=== PATIENT | male | born 1955 | race African-American/Black ===

== ENCOUNTER 2019-01-19 12:58 | Inpatient (IN) ==
[2019-01-19] MEDS ORDERED: NITROGLYCERIN 2% OINT 1 INCH/GM PACK TOP STA (13:56)
[2019-01-19] MEDS ORDERED: ALBUTEROL/IPRATROPIUM 3 ML NEB RESP TX STA (13:56)
[2019-01-19] MEDS ORDERED: ONDANSETRON 4 MG/2 ML VIAL IV STA (13:56)
[2019-01-19] MEDS ORDERED: ASPIRIN 325 MG TABLET PO STA (13:56)
[2019-01-19] MEDS ORDERED: FUROSEMIDE 100 MG/10 ML VIAL IV STA (13:56)
[2019-01-19] MEDS ORDERED: MORPHINE 4 MG/1 ML VIAL IV STA (13:56)
[2019-01-19 15:18] LABS: Basophils % 0.2 % (0.0-0.8); Eosinophils # 1.3 10*3/uL (0.0-0.87); Eosinophils % 10.7 % (0.00-10.9); Hematocrit 35.4 VOL% (42.0-52.0); Hemoglobin 10.5 GM/DL (14.0-18.0); Immature Granulocytes % 0.4 %; Immature Granulocytes Absolute 0.05 #; Lymphocytes # 2.5 10*3/uL (1.4-4.0); Lymphocytes % 20.3 % (21.2-54.2); Mean Corpuscular HGB Conc 29.7 GM/DL (32-36); Mean Corpuscular Hemoglobin 28 PG (27-34); Mean Corpuscular Volume 93.7 FL (87-102); Mean Platelet Volume 9.4 FL (9.6-12.0); Monocytes # 0.7 10*3/uL (0.11-0.8); Monocytes % 5.6 % (1.7-12.7); Neutrophils # 7.6 10*3/uL (1.4-7.4); Neutrophils % 62.8 % (38.7-73.9); Platelet Count 380 T/CUMM (130-400); Red Blood Count 3.78 MC/CUMM (3.8-5.5); Red Cell Distribution Width 13.1 % (9.3-17.3); White Blood Count 12.1 T/CUMM (4-12)
[2019-01-19 15:31] LABS: Apearance,Urine CLEAR (Clear); Bacteria,Urine Occasional /HPF (Few); Bilirubin,Urine Negative (Negative); Blood, Urine Small mg/dL (Negative); Glucose,Urine (UA) Negative (Negative); Ketones,Urine Negative (Negative); Mucus,Urine Occasional /LPF (Occasional); Nitrite,Urine Negative (Negative); PT Patient Result 10.4 SECS; Protein,Urine 30 MG/DL; RBC,Urine 1 /HPF (0-4); Urine Color Colorless (Yellow); Urine Specific Gravity 1.008 (1.001-1.035); Urine Urobilinogen < 2.0 EU/DL (0.2-1.0); WBC,Urine <1 /HPF (0-6)
[2019-01-19 15:43] LABS: Albumin 3.6 G/DL (3.4-5.0); Bilirubin,Total 0.5 MG/DL (0.2-1.0); Calcium 9.1 MG/DL (8.5-10.1); Potassium 4.1 MMOL/L (3.5-5.1); Total Protein 9.3 G/DL (6.4-8.3)
[2019-01-19] MEDS ORDERED: MAGNESIUM SULF RIDER 4 GM in PREMIX 1 EACH IV PRN (16:35)
[2019-01-19] MEDS ORDERED: MAGNESIUM SULF RIDER 2 GM in PREMIX 1 EACH IV PRN (16:35)
[2019-01-19] MEDS ORDERED: GLUCAGON 1 MG VIAL IM PRN ×2 (16:38)
[2019-01-19] MEDS ORDERED: DEXTROSE 50% 25 GM/50 ML VIAL IV PRN ×2 (16:38)
[2019-01-19] MEDS ORDERED: CETIRIZINE 10 MG TABLET PO PRN (16:43)
[2019-01-19] MEDS ORDERED: MORPHINE 4 MG/1 ML VIAL IV PRN (16:47)
[2019-01-19] MEDS ORDERED: ZALEPLON 5 MG CAPSULE PO PRN (16:47)
[2019-01-19] MEDS ORDERED: ONDANSETRON 4 MG/2 ML VIAL IV PRN (16:47)
[2019-01-19] MEDS ORDERED: diphenhydrAMINE CAP 25 MG CAPSULE PO PRN (16:47)
[2019-01-19] MEDS ORDERED: ACETAMINOPHEN 325 MG TABLET PO PRN (16:47)
[2019-01-19 16:48] LABS: Eosinophils 9 % (0-10); Lymphocytes 20 % (20-55); Platelet Estimate Normal; Segmented Neutrophils 66 % (50-85); Total Cells Counted 100
[2019-01-19] MEDS ORDERED: HEPARIN 5,000 UNIT/1 ML VIAL SUBCUT SCH (17:00)
[2019-01-19] MEDS ORDERED: hydrALAZINE 20 MG/1 ML VIAL IV PRN (17:03)
[2019-01-19 17:21] LABS: Risk Ratio 3.62; VLDL CHOLESTEROL 23.4 MG/DL
[2019-01-19] MEDS ORDERED: hydrALAZINE 20 MG/1 ML VIAL IV STA (17:45)
[2019-01-19] MEDS ORDERED: cefTRIAXone 1,000 MG in SODIUM CHLORIDE 0.9% 100 ML IV SCH (18:00)
[2019-01-19] MEDS: ALBUTEROL/IPRATROPIUM 3 ML NEB RESP TX SCH (19:37)
[2019-01-19] MEDS ORDERED: hydrALAZINE 10 MG TABLET PO SCH (21:00)
[2019-01-19] MEDS ORDERED: APIXABAN 2.5 MG TABLET PO SCH (21:00)
[2019-01-19] MEDS: FUROSEMIDE 40 MG/4 ML VIAL IV SCH (21:23)
[2019-01-19] MEDS: hydrALAZINE 10 MG TABLET PO SCH (21:24)
[2019-01-19] MEDS: TAMSULOSIN 0.4 MG CAPSULE PO SCH (21:24)
[2019-01-19] MEDS: DOCUSATE SODIUM 100 MG CAPSULE PO SCH (21:24)
[2019-01-19] MEDS: ATORVASTATIN 40 MG TABLET PO SCH (21:24)
[2019-01-19] MEDS: CARVEDILOL 3.125 MG TABLET PO SCH (21:24)
[2019-01-19] MEDS: APIXABAN 2.5 MG TABLET PO SCH (21:25)
[2019-01-19] MEDS: INSULIN REGULAR 100 UNIT/ML SUBCUT SCH (21:25)
[2019-01-20] MEDS: ALBUTEROL/IPRATROPIUM 3 ML NEB RESP TX SCH ×4 (00:31→19:56)
[2019-01-20] MEDS: FUROSEMIDE 40 MG/4 ML VIAL IV SCH ×4 (03:35→20:48)
[2019-01-20 05:21] LABS: Basophils % 0.2 % (0.0-0.8); Eosinophils # 0.9 10*3/uL (0.0-0.87); Eosinophils % 8.1 % (0.00-10.9); Hematocrit 29.6 VOL% (42.0-52.0); Hemoglobin 8.7 GM/DL (14.0-18.0); Immature Granulocytes % 0.4 %; Immature Granulocytes Absolute 0.04 #; Lymphocytes # 1.9 10*3/uL (1.4-4.0); Lymphocytes % 18.2 % (21.2-54.2); Mean Corpuscular HGB Conc 29.4 GM/DL (32-36); Mean Corpuscular Hemoglobin 28 PG (27-34); Mean Platelet Volume 9.5 FL (9.6-12.0); Monocytes # 0.8 10*3/uL (0.11-0.8); Monocytes % 7.9 % (1.7-12.7); Neutrophils # 6.9 10*3/uL (1.4-7.4); Neutrophils % 65.2 % (38.7-73.9); Platelet Count 314 T/CUMM (130-400); Red Blood Count 3.15 MC/CUMM (3.8-5.5); Red Cell Distribution Width 13.3 % (9.3-17.3); White Blood Count 10.6 T/CUMM (4-12)
[2019-01-20 05:41] LABS: Calcium 8.3 MG/DL (8.5-10.1); Potassium 4.4 MMOL/L (3.5-5.1)
[2019-01-20 07:53] LABS: Total Protein (Chem) 9.5 G/DL (6.4-8.3)
[2019-01-20] MEDS ORDERED: FUROSEMIDE 40 MG/4 ML VIAL IV SCH ×2 (08:00)
[2019-01-20] MEDS: INSULIN REGULAR 100 UNIT/ML SUBCUT SCH ×4 (08:31→20:56)
[2019-01-20] MEDS ORDERED: LISINOPRIL 2.5 MG TABLET PO SCH (09:00)
[2019-01-20] MEDS: DOCUSATE SODIUM 100 MG CAPSULE PO SCH ×2 (10:15→20:51)
[2019-01-20] MEDS: ASPIRIN CHEW 81 MG TABLET PO SCH (10:15)
[2019-01-20] MEDS: CARVEDILOL 3.125 MG TABLET PO SCH ×2 (10:15→20:51)
[2019-01-20] MEDS: hydrALAZINE 10 MG TABLET PO SCH ×3 (10:15→20:48)
[2019-01-20] MEDS: APIXABAN 2.5 MG TABLET PO SCH ×2 (10:16→20:49)
[2019-01-20] MEDS: PANTOPRAZOLE 40 MG TABLET PO SCH (10:16)
[2019-01-20 11:13] LABS: Albumin (SPE) 4.6 G/DL (3.2-5.3)
[2019-01-20 11:14] LABS: Albumin (SPE) Rel % 48.7 %; Alpha 1 (SPE) 0.3 G/DL (0.1-0.4); Alpha 2 (SPE) 1.2 G/DL (0.4-1.0); Alpha 2 (SPE) Rel % 12.2 %; Beta (SPE) Rel % 10.7 %; Gamma (SPE) 2.4 G/DL (0.7-1.7); Gamma (SPE) Rel % 25.4 %
[2019-01-20] MEDS: ISOSORBIDE MONONITRATE 60 MG TABLET PO SCH (12:33)
[2019-01-20] MEDS ORDERED: MAGNESIUM SULF RIDER 2 GM in PREMIX 1 EACH IV ONE (17:54)
[2019-01-20] MEDS ORDERED: ALPRAZolam 0.5 MG TABLET PO ONE (17:55)
[2019-01-20 17:58] LABS: ABG Base Excess -1.8 MMOL/L (-2.5-2.5); ABG HCO3 22.9 MMOL/L (20-26); ABG Oxygen Saturation 97.9 % (95-100); ABG PCO2 39.2 MM HG (35-48); ABG PH 7.379 (7.35-7.45); ABG PO2 99.8 MM HG (80-95); ABG TCO2 21.2 MMOL/L (23-27)
[2019-01-20 18:06] LABS: Basophils % 0.2 % (0.0-0.8); Eosinophils # 0.6 10*3/uL (0.0-0.87); Eosinophils % 4.7 % (0.00-10.9); Hematocrit 30.8 VOL% (42.0-52.0); Hemoglobin 9.1 GM/DL (14.0-18.0); Immature Granulocytes % 0.5 %; Immature Granulocytes Absolute 0.06 #; Lymphocytes # 1.5 10*3/uL (1.4-4.0); Lymphocytes % 11.8 % (21.2-54.2); Mean Corpuscular HGB Conc 29.5 GM/DL (32-36); Mean Corpuscular Hemoglobin 28 PG (27-34); Mean Corpuscular Volume 93.6 FL (87-102); Mean Platelet Volume 9.3 FL (9.6-12.0); Monocytes # 0.8 10*3/uL (0.11-0.8); Monocytes % 6.3 % (1.7-12.7); Neutrophils # 9.6 10*3/uL (1.4-7.4); Neutrophils % 76.5 % (38.7-73.9); Platelet Count 328 T/CUMM (130-400); Red Blood Count 3.29 MC/CUMM (3.8-5.5); Red Cell Distribution Width 13.2 % (9.3-17.3); White Blood Count 12.5 T/CUMM (4-12)
[2019-01-20 18:32] LABS: Bilirubin,Total 0.4 MG/DL (0.2-1.0); Calcium 8.3 MG/DL (8.5-10.1); Osmolality,Calculated 296.1 MOS/KG (273-304); Troponin I 0.019 NG/ML (0.00-0.045)
[2019-01-20 18:52] LABS: Calcium 8.2 MG/DL (8.5-10.1); Osmolality,Calculated 296.1 MOS/KG (273-304)
[2019-01-20] MEDS: ATORVASTATIN 40 MG TABLET PO SCH (20:51)
[2019-01-20] MEDS: TAMSULOSIN 0.4 MG CAPSULE PO SCH (20:51)
[2019-01-21] MEDS: ALBUTEROL/IPRATROPIUM 3 ML NEB RESP TX SCH ×4 (00:31→19:41)
[2019-01-21] MEDS: FUROSEMIDE 40 MG/4 ML VIAL IV SCH ×3 (04:41→16:37)
[2019-01-21 05:03] LABS: Basophils % 0.3 % (0.0-0.8); Eosinophils # 0.7 10*3/uL (0.0-0.87); Hematocrit 28.9 VOL% (42.0-52.0); Hemoglobin 8.7 GM/DL (14.0-18.0); Immature Granulocytes % 0.4 %; Immature Granulocytes Absolute 0.04 #; Lymphocytes # 2.4 10*3/uL (1.4-4.0); Lymphocytes % 20.9 % (21.2-54.2); Mean Corpuscular HGB Conc 30.1 GM/DL (32-36); Mean Corpuscular Hemoglobin 28 PG (27-34); Mean Corpuscular Volume 92.9 FL (87-102); Mean Platelet Volume 9.7 FL (9.6-12.0); Neutrophils # 7.2 10*3/uL (1.4-7.4); Neutrophils % 63.4 % (38.7-73.9); Platelet Count 328 T/CUMM (130-400); Red Blood Count 3.11 MC/CUMM (3.8-5.5); Red Cell Distribution Width 13.2 % (9.3-17.3); White Blood Count 11.4 T/CUMM (4-12)
[2019-01-21 05:19] LABS: Calcium 8.6 MG/DL (8.5-10.1); Potassium 3.7 MMOL/L (3.5-5.1)
[2019-01-21 05:23] LABS: % Iron Saturation 9.7 % (18-50); Ferritin 45.3 ng/ml (26-388)
[2019-01-21 05:50] LABS: Folate 9.9 NG/ML (5.4-24.0)
[2019-01-21 06:16] LABS: Creatinine,Urine Random 54 MG/DL; Total Protein,Urine Random 111 MG/DL; Urea Nitrogen, Urine Random 227 MG/DL
[2019-01-21 09:10] LABS: Immunoglobulin A 363 MG/DL (70-400); Immunoglobulin G 1950 MG/DL (700-1600); Immunoglobulin M 86 MG/DL (40-230)
[2019-01-21] MEDS: INSULIN REGULAR 100 UNIT/ML SUBCUT SCH ×4 (09:42→21:42)
[2019-01-21] MEDS: hydrALAZINE 10 MG TABLET PO SCH ×3 (09:42→21:38)
[2019-01-21] MEDS: ISOSORBIDE MONONITRATE 60 MG TABLET PO SCH (09:42)
[2019-01-21] MEDS: DOCUSATE SODIUM 100 MG CAPSULE PO SCH ×2 (09:42→21:39)
[2019-01-21] MEDS: ASPIRIN CHEW 81 MG TABLET PO SCH (09:42)
[2019-01-21] MEDS: PANTOPRAZOLE 40 MG TABLET PO SCH (09:42)
[2019-01-21] MEDS: CARVEDILOL 3.125 MG TABLET PO SCH (09:42)
[2019-01-21] MEDS: APIXABAN 2.5 MG TABLET PO SCH (09:42)
[2019-01-21 09:57] LABS: Albumin (UPER) 66.9 MG/DL; Albumin (UPER) Rel% 60.3 %; Alpha 1 (UPER) 10.1 MG/DL; Alpha 1 (UPER) Rel% 9.1 %; Alpha 2 (UPER) 4.2 MG/DL
[2019-01-21 09:58] LABS: Alpha 2 (UPER) Rel % 3.8 %; Beta (UPER) 9.8 MG/DL; Beta (UPER) Rel % 8.8 %
[2019-01-21] MEDS: TAMSULOSIN 0.4 MG CAPSULE PO SCH (21:39)
[2019-01-21] MEDS: ATORVASTATIN 40 MG TABLET PO SCH (21:39)
[2019-01-21] MEDS: CARVEDILOL 6.25 MG TABLET PO SCH (21:39)
[2019-01-22] MEDS: ALBUTEROL/IPRATROPIUM 3 ML NEB RESP TX SCH ×4 (01:00→19:31)
[2019-01-22 05:27] LABS: Basophils % 0.3 % (0.0-0.8); Eosinophils # 1.4 10*3/uL (0.0-0.87); Eosinophils % 10.3 % (0.00-10.9); Hematocrit 29.3 VOL% (42.0-52.0); Hemoglobin 8.9 GM/DL (14.0-18.0); Immature Granulocytes % 0.3 %; Immature Granulocytes Absolute 0.04 #; Lymphocytes # 2.3 10*3/uL (1.4-4.0); Lymphocytes % 17.1 % (21.2-54.2); Mean Corpuscular HGB Conc 30.4 GM/DL (32-36); Mean Corpuscular Hemoglobin 28 PG (27-34); Mean Corpuscular Volume 92.1 FL (87-102); Mean Platelet Volume 9.6 FL (9.6-12.0); Monocytes # 1.2 10*3/uL (0.11-0.8); Monocytes % 9.1 % (1.7-12.7); Neutrophils # 8.6 10*3/uL (1.4-7.4); Neutrophils % 62.9 % (38.7-73.9); Platelet Count 340 T/CUMM (130-400); Red Blood Count 3.18 MC/CUMM (3.8-5.5); Red Cell Distribution Width 12.8 % (9.3-17.3); White Blood Count 13.6 T/CUMM (4-12)
[2019-01-22 05:37] LABS: Calcium 8.4 MG/DL (8.5-10.1); Potassium 3.4 MMOL/L (3.5-5.1)
[2019-01-22 05:46] LABS: Calcium 8.4 MG/DL (8.5-10.1); Osmolality,Calculated 292.1 MOS/KG (273-304); Potassium 3.4 MMOL/L (3.5-5.1)
[2019-01-22 05:48] LABS: Immunoglobulin A (Chem) 363 MG/DL (70-400); Immunoglobulin G (Chem) 1950 MG/DL (700-1600); Immunoglobulin M (Chem) 86 MG/DL (40-230)
[2019-01-22] MEDS: INSULIN REGULAR 100 UNIT/ML SUBCUT SCH ×4 (08:01→21:05)
[2019-01-22] MEDS: FUROSEMIDE 40 MG/4 ML VIAL IV SCH ×2 (08:02→15:19)
[2019-01-22] MEDS: POTASSIUM CHLORIDE RIDER 10 MEQ in PREMIX 1 EACH IV PRN ×3 (08:07→10:27)
[2019-01-22] MEDS: hydrALAZINE 10 MG TABLET PO SCH ×3 (09:27→21:05)
[2019-01-22] MEDS: PANTOPRAZOLE 40 MG TABLET PO SCH (09:28)
[2019-01-22] MEDS: ISOSORBIDE MONONITRATE 60 MG TABLET PO SCH (09:28)
[2019-01-22] MEDS: DOCUSATE SODIUM 100 MG CAPSULE PO SCH ×2 (09:28→21:04)
[2019-01-22] MEDS: ASPIRIN CHEW 81 MG TABLET PO SCH (09:28)
[2019-01-22] MEDS: CARVEDILOL 6.25 MG TABLET PO SCH (09:28)
[2019-01-22] MEDS ORDERED: CARVEDILOL 6.25 MG TABLET PO ONE (11:48)
[2019-01-22] MEDS: CARVEDILOL 12.5 MG TABLET PO SCH (21:04)
[2019-01-22] MEDS: ATORVASTATIN 40 MG TABLET PO SCH (21:04)
[2019-01-22] MEDS: TAMSULOSIN 0.4 MG CAPSULE PO SCH (21:04)
[2019-01-23] MEDS: ALBUTEROL/IPRATROPIUM 3 ML NEB RESP TX SCH ×4 (00:35→20:04)
[2019-01-23 05:14] LABS: Basophils % 0.2 % (0.0-0.8); Eosinophils # 1.4 10*3/uL (0.0-0.87); Eosinophils % 10.7 % (0.00-10.9); Hematocrit 30.4 VOL% (42.0-52.0); Hemoglobin 9.2 GM/DL (14.0-18.0); Immature Granulocytes % 0.5 %; Immature Granulocytes Absolute 0.06 #; Lymphocytes % 15.7 % (21.2-54.2); Mean Corpuscular HGB Conc 30.3 GM/DL (32-36); Mean Corpuscular Hemoglobin 28 PG (27-34); Mean Corpuscular Volume 91.8 FL (87-102); Mean Platelet Volume 9.4 FL (9.6-12.0); Monocytes # 1.2 10*3/uL (0.11-0.8); Monocytes % 9.6 % (1.7-12.7); Neutrophils % 63.3 % (38.7-73.9); Platelet Count 335 T/CUMM (130-400); Red Blood Count 3.31 MC/CUMM (3.8-5.5); Red Cell Distribution Width 12.6 % (9.3-17.3); White Blood Count 12.7 T/CUMM (4-12)
[2019-01-23 05:47] LABS: Calcium 8.6 MG/DL (8.5-10.1); Osmolality,Calculated 290.1 MOS/KG (273-304); Potassium 3.4 MMOL/L (3.5-5.1)
[2019-01-23 06:14] LABS: Eosinophils 5 % (0-10); Hypochromasia 1+; Lymphocytes 20 % (20-55); Platelet Estimate Adequate; Segmented Neutrophils 69 % (50-85); Total Cells Counted 100
[2019-01-23 06:15] LABS: Ovalocytes Slight
[2019-01-23] MEDS: DOCUSATE SODIUM 100 MG CAPSULE PO SCH ×2 (09:16→20:55)
[2019-01-23] MEDS: ISOSORBIDE MONONITRATE 60 MG TABLET PO SCH (09:16)
[2019-01-23] MEDS: glyBURIDE 5 MG TABLET PO SCH (09:16)
[2019-01-23] MEDS: ASPIRIN CHEW 81 MG TABLET PO SCH (09:16)
[2019-01-23] MEDS: CARVEDILOL 12.5 MG TABLET PO SCH ×2 (09:16→20:55)
[2019-01-23] MEDS: hydrALAZINE 10 MG TABLET PO SCH ×3 (09:16→20:55)
[2019-01-23] MEDS: FUROSEMIDE 40 MG TABLET PO SCH ×2 (09:16→16:40)
[2019-01-23] MEDS: PANTOPRAZOLE 40 MG TABLET PO SCH (09:16)
[2019-01-23] MEDS: INSULIN REGULAR 100 UNIT/ML SUBCUT SCH ×4 (09:17→20:55)
[2019-01-23] MEDS: cloNIDine 0.1 MG TABLET PO SCH ×2 (09:20→20:55)
[2019-01-23 12:53] LABS: Immuno Free Light Chain Lambda 10.67 MG/DL (0.57-2.63); Immuno Free Light Chain Ratio 1.81 MG/DL (0.26-1.65)
[2019-01-23] MEDS: TAMSULOSIN 0.4 MG CAPSULE PO SCH (20:55)
[2019-01-23] MEDS: ATORVASTATIN 40 MG TABLET PO SCH (20:55)
[2019-01-24] MEDS: ALBUTEROL/IPRATROPIUM 3 ML NEB RESP TX SCH ×4 (00:39→19:29)
[2019-01-24 05:20] LABS: Basophils % 0.2 % (0.0-0.8); Eosinophils # 0.5 10*3/uL (0.0-0.87); Eosinophils % 4.1 % (0.00-10.9); Hematocrit 29.6 VOL% (42.0-52.0); Hemoglobin 9.1 GM/DL (14.0-18.0); Immature Granulocytes % 0.5 %; Immature Granulocytes Absolute 0.07 #; Lymphocytes # 1.9 10*3/uL (1.4-4.0); Lymphocytes % 14.6 % (21.2-54.2); Mean Corpuscular HGB Conc 30.7 GM/DL (32-36); Mean Corpuscular Hemoglobin 28 PG (27-34); Mean Corpuscular Volume 91.1 FL (87-102); Mean Platelet Volume 9.7 FL (9.6-12.0); Monocytes # 1.5 10*3/uL (0.11-0.8); Monocytes % 11.1 % (1.7-12.7); Neutrophils # 9.1 10*3/uL (1.4-7.4); Neutrophils % 69.5 % (38.7-73.9); Platelet Count 344 T/CUMM (130-400); Red Blood Count 3.25 MC/CUMM (3.8-5.5); Red Cell Distribution Width 12.6 % (9.3-17.3); White Blood Count 13.1 T/CUMM (4-12)
[2019-01-24 05:24] LABS: Calcium 8.5 MG/DL (8.5-10.1); Osmolality,Calculated 286.5 MOS/KG (273-304); Potassium 3.4 MMOL/L (3.5-5.1)
[2019-01-24 05:30] LABS: Calcium 8.4 MG/DL (8.5-10.1); Osmolality,Calculated 287.4 MOS/KG (273-304); Potassium 3.4 MMOL/L (3.5-5.1)
[2019-01-24] MEDS ORDERED: MAGNESIUM HYDROXIDE SUSP 30 ML UDCUP PO ONE (07:02)
[2019-01-24] MEDS ORDERED: BISACODYL 5 MG TABLET PO ONE (07:02)
[2019-01-24] MEDS: cloNIDine 0.1 MG TABLET PO SCH ×2 (08:26→20:28)
[2019-01-24] MEDS: ASPIRIN EC 81 MG TABLET PO SCH (08:26)
[2019-01-24] MEDS: DOCUSATE SODIUM 100 MG CAPSULE PO SCH ×2 (08:26→20:28)
[2019-01-24] MEDS: FUROSEMIDE 40 MG TABLET PO SCH ×2 (08:26→15:46)
[2019-01-24] MEDS: PANTOPRAZOLE 40 MG TABLET PO SCH (08:26)
[2019-01-24] MEDS: glyBURIDE 5 MG TABLET PO SCH (08:26)
[2019-01-24] MEDS: ISOSORBIDE MONONITRATE 60 MG TABLET PO SCH (08:26)
[2019-01-24] MEDS: hydrALAZINE 10 MG TABLET PO SCH ×3 (08:27→20:28)
[2019-01-24] MEDS: INSULIN REGULAR 100 UNIT/ML SUBCUT SCH ×4 (08:27→20:28)
[2019-01-24] MEDS: CARVEDILOL 12.5 MG TABLET PO SCH ×2 (08:27→20:28)
[2019-01-24] MEDS: TAMSULOSIN 0.4 MG CAPSULE PO SCH (20:28)
[2019-01-24] MEDS: ATORVASTATIN 40 MG TABLET PO SCH (20:28)
[2019-01-25] MEDS: ALBUTEROL/IPRATROPIUM 3 ML NEB RESP TX SCH ×4 (01:12→19:58)
[2019-01-25] MEDS: INSULIN REGULAR 100 UNIT/ML SUBCUT SCH ×4 (07:38→20:57)
[2019-01-25] MEDS: DOCUSATE SODIUM 100 MG CAPSULE PO SCH ×2 (08:14→20:53)
[2019-01-25] MEDS: ASPIRIN EC 81 MG TABLET PO SCH (08:14)
[2019-01-25] MEDS: CARVEDILOL 12.5 MG TABLET PO SCH ×2 (08:14→20:53)
[2019-01-25] MEDS: FUROSEMIDE 40 MG TABLET PO SCH ×2 (08:14→16:47)
[2019-01-25] MEDS: hydrALAZINE 10 MG TABLET PO SCH ×3 (08:14→20:53)
[2019-01-25] MEDS: ISOSORBIDE MONONITRATE 60 MG TABLET PO SCH (08:14)
[2019-01-25] MEDS: PANTOPRAZOLE 40 MG TABLET PO SCH (08:14)
[2019-01-25] MEDS: glyBURIDE 5 MG TABLET PO SCH (08:22)
[2019-01-25] MEDS: cloNIDine 0.1 MG TABLET PO SCH ×2 (08:22→20:53)
[2019-01-25] MEDS: TAMSULOSIN 0.4 MG CAPSULE PO SCH (20:53)
[2019-01-25] MEDS: ATORVASTATIN 40 MG TABLET PO SCH (20:53)
[2019-01-26] MEDS: ALBUTEROL/IPRATROPIUM 3 ML NEB RESP TX SCH ×2 (01:04→07:40)
[2019-01-26 04:43] LABS: Basophils % 0.3 % (0.0-0.8); Eosinophils % 8.6 % (0.00-10.9); Hematocrit 29.1 VOL% (42.0-52.0); Hemoglobin 8.7 GM/DL (14.0-18.0); Immature Granulocytes % 0.3 %; Immature Granulocytes Absolute 0.03 #; Lymphocytes # 1.9 10*3/uL (1.4-4.0); Lymphocytes % 16.1 % (21.2-54.2); Mean Corpuscular HGB Conc 29.9 GM/DL (32-36); Mean Corpuscular Hemoglobin 27 PG (27-34); Mean Corpuscular Volume 90.9 FL (87-102); Mean Platelet Volume 9.7 FL (9.6-12.0); Monocytes # 1.1 10*3/uL (0.11-0.8); Monocytes % 9.8 % (1.7-12.7); Neutrophils # 7.5 10*3/uL (1.4-7.4); Neutrophils % 64.9 % (38.7-73.9); Platelet Count 355 T/CUMM (130-400); Red Cell Distribution Width 12.2 % (9.3-17.3); White Blood Count 11.5 T/CUMM (4-12)
[2019-01-26 05:10] LABS: Alanine Aminotransferase < 6 U/L (16-61); Albumin 2.6 G/DL (3.4-5.0); Alkaline Phosphatase 81 U/L (45-117); Aspartate Amino Transferase 9 U/L (0-37); Blood Urea Nitrogen 27 MG/DL (7-18); Calcium 8.6 MG/DL (8.5-10.1); Glucose 204 MG/DL (74-106); Osmolality,Calculated 289.4 MOS/KG (273-304); Potassium 3.2 MMOL/L (3.5-5.1); Sodium 140 MMOL/L (136-145); Total Protein 7.7 G/DL (6.4-8.3)
[2019-01-26] MEDS: ISOSORBIDE MONONITRATE 60 MG TABLET PO SCH (08:37)
[2019-01-26] MEDS: DOCUSATE SODIUM 100 MG CAPSULE PO SCH (08:37)
[2019-01-26] MEDS: ASPIRIN EC 81 MG TABLET PO SCH (08:37)
[2019-01-26] MEDS: PANTOPRAZOLE 40 MG TABLET PO SCH (08:37)
[2019-01-26] MEDS: glyBURIDE 5 MG TABLET PO SCH (08:38)
[2019-01-26] MEDS: cloNIDine 0.1 MG TABLET PO SCH (08:38)
[2019-01-26] MEDS: FUROSEMIDE 40 MG TABLET PO SCH (08:38)
[2019-01-26] MEDS: INSULIN REGULAR 100 UNIT/ML SUBCUT SCH ×2 (08:39→11:52)
[2019-01-26] MEDS: CARVEDILOL 12.5 MG TABLET PO SCH (08:40)
[2019-01-26] MEDS: hydrALAZINE 10 MG TABLET PO SCH (08:40)
[2019-01-26] MEDS ORDERED: POTASSIUM CHLORIDE 20 MEQ TABLET PO SCH (09:00)
[2019-01-26] MEDS ORDERED: LOSARTAN 50 MG TABLET PO SCH (10:00)
[2019-01-26] MEDS ORDERED: INSULIN GLARGINE 100 UNIT/ML SUBCUT SCH (11:30)
[2019-01-26 11:54] VITALS: BP 146/77
[2019-01-26] MEDS ORDERED: FUROSEMIDE 40 MG TABLET PO SCH (14:00)
== END 2019-01-26 12:27 | disposition home health service (06) | DRG 291 ==
LOC: N.ED 12:58 → N.EDINP 12:58 → SUATTDRO 16:40 → N.5E 18:50
PROVIDERS: ADMIT Internal Medicine; ATTEND Internal Medicine

== ENCOUNTER 2019-11-03 11:42 | Inpatient (IN) ==
[2019-11-03 13:08] LABS: Basophils % 0.1 % (0.0-0.8); Eosinophils # 0.1 10*3/uL (0.0-0.87); Eosinophils % 0.4 % (0.00-10.9); Hematocrit 29.9 VOL% (42.0-52.0); Hemoglobin 9.5 GM/DL (14.0-18.0); Immature Granulocytes % 0.5 %; Immature Granulocytes Absolute 0.11 #; Lymphocytes # 1.1 10*3/uL (1.4-4.0); Lymphocytes % 5.1 % (21.2-54.2); Mean Corpuscular HGB Conc 31.8 GM/DL (32-36); Mean Corpuscular Volume 90.6 FL (87-102); Mean Platelet Volume 9.3 FL (9.6-12.0); Monocytes % 4.4 % (1.7-12.7); Neutrophils % 89.5 % (38.7-73.9); Platelet Count 335 T/CUMM (130-400); Red Cell Distribution Width 13.7 % (9.3-17.3); White Blood Count 21.6 T/CUMM (4-12)
[2019-11-03 13:28] LABS: Anisocytosis Slight; Band Neutrophils 4 % (0-10); Eosinophils 1 % (0-10); Lymphocytes 6 % (20-55); Platelet Estimate Normal; Segmented Neutrophils 83 % (50-85); Total Cells Counted 100
[2019-11-03 13:29] LABS: Macrocytosis 1+
[2019-11-03 13:30] LABS: Bilirubin,Total 0.5 MG/DL (0.2-1.0); Calcium 8.4 MG/DL (8.5-10.1); Total Protein 8.9 G/DL (6.4-8.3)
[2019-11-03] MEDS ORDERED: FUROSEMIDE 100 MG/10 ML VIAL IV STA (14:22)
[2019-11-03] MEDS ORDERED: ONDANSETRON 4 MG/2 ML VIAL IV PRN (14:28)
[2019-11-03] MEDS ORDERED: ACETAMINOPHEN 325 MG TABLET PO PRN (14:28)
[2019-11-03] MEDS ORDERED: cefTRIAXone 1,000 MG in SODIUM CHLORIDE 0.9% 100 ML IV STA (14:28)
[2019-11-03 15:01] LABS: Apearance,Urine CLEAR (Clear); Bacteria,Urine Occasional /HPF (Few); Bilirubin,Urine Negative (Negative); Blood, Urine Small mg/dL (Negative); Glucose,Urine (UA) 50 mg/dL (Negative); Ketones,Urine Negative (Negative); Mucus,Urine Occasional /LPF (Occasional); Nitrite,Urine Negative (Negative); Protein,Urine 100 MG/DL; RBC,Urine 3 /HPF (0-4); Urine Color Straw (Yellow); Urine Specific Gravity 1.011 (1.001-1.035); Urine Urobilinogen < 2.0 EU/DL (0.2-1.0)
[2019-11-03] MEDS ORDERED: NITROGLYCERIN SL 0.4 MG TABLET SL PRN (16:43)
[2019-11-03] MEDS ORDERED: MORPHINE 4 MG/1 ML VIAL IV PRN (16:43)
[2019-11-03] MEDS: carvediloL 12.5 MG TABLET PO SCH (17:30)
[2019-11-03] MEDS: ENOXAPARIN 150 MG/ML SYRINGE SUBCUT SCH (17:30)
[2019-11-03] MEDS: glipiZIDE 10 MG TABLET PO SCH (17:30)
[2019-11-03] MEDS: INSULIN LISPRO 100 UNIT/ML SUBCUT SCH (17:30)
[2019-11-03] MEDS: TAMSULOSIN 0.4 MG CAPSULE PO SCH (20:39)
[2019-11-03] MEDS: DOCUSATE SODIUM 100 MG CAPSULE PO SCH (20:39)
[2019-11-03] MEDS: ATORVASTATIN 10 MG TABLET PO SCH (20:39)
[2019-11-03] MEDS: GABAPENTIN 300 MG CAPSULE PO SCH (20:39)
[2019-11-03] MEDS: amLODIPine 5 MG TABLET PO SCH (20:40)
[2019-11-03] MEDS: FUROSEMIDE 80 MG TABLET PO SCH (20:40)
[2019-11-03] MEDS ORDERED: APIXABAN 2.5 MG TABLET PO SCH (21:00)
[2019-11-04 06:36] LABS: Basophils % 0.3 % (0.0-0.8); Eosinophils # 1.1 10*3/uL (0.0-0.87); Hematocrit 28.1 VOL% (42.0-52.0); Hemoglobin 8.6 GM/DL (14.0-18.0); Immature Granulocytes % 0.5 %; Immature Granulocytes Absolute 0.08 #; Lymphocytes # 2.4 10*3/uL (1.4-4.0); Lymphocytes % 15.5 % (21.2-54.2); Mean Corpuscular HGB Conc 30.6 GM/DL (32-36); Mean Corpuscular Volume 93.4 FL (87-102); Mean Platelet Volume 9.5 FL (9.6-12.0); Monocytes % 6.8 % (1.7-12.7); Neutrophils % 69.9 % (38.7-73.9); Platelet Count 351 T/CUMM (130-400); Red Blood Count 3.01 MC/CUMM (3.8-5.5); Red Cell Distribution Width 13.8 % (9.3-17.3); White Blood Count 15.2 T/CUMM (4-12)
[2019-11-04 06:49] LABS: Calcium 8.5 MG/DL (8.5-10.1)
[2019-11-04] MEDS: INSULIN GLARGINE 100 UNIT/ML SUBCUT SCH (08:55)
[2019-11-04] MEDS: INSULIN LISPRO 100 UNIT/ML SUBCUT SCH ×3 (08:55→17:16)
[2019-11-04] MEDS: glipiZIDE 10 MG TABLET PO SCH ×2 (08:56→17:15)
[2019-11-04] MEDS: amLODIPine 5 MG TABLET PO SCH ×2 (08:57→21:25)
[2019-11-04] MEDS: carvediloL 12.5 MG TABLET PO SCH ×2 (08:57→17:15)
[2019-11-04] MEDS: GABAPENTIN 300 MG CAPSULE PO SCH ×2 (08:57→21:24)
[2019-11-04] MEDS: sitaGLIPtin 25 MG TABLET PO SCH (08:57)
[2019-11-04] MEDS: PANTOPRAZOLE 40 MG TABLET PO SCH (08:57)
[2019-11-04] MEDS: FUROSEMIDE 80 MG TABLET PO SCH ×2 (08:57→15:29)
[2019-11-04] MEDS: allopurinoL 300 MG TABLET PO SCH (08:57)
[2019-11-04] MEDS: ISOSORBIDE MONONITRATE 60 MG TABLET PO SCH (08:57)
[2019-11-04] MEDS: ASPIRIN EC 81 MG TABLET PO SCH (08:57)
[2019-11-04] MEDS: DOCUSATE SODIUM 100 MG CAPSULE PO SCH ×2 (08:57→21:24)
[2019-11-04] MEDS: SODIUM CHLORIDE 0.9% 1,000 ML IV SCH (15:28)
[2019-11-04] MEDS: ENOXAPARIN 150 MG/ML SYRINGE SUBCUT SCH (17:15)
[2019-11-04] MEDS: TAMSULOSIN 0.4 MG CAPSULE PO SCH (21:24)
[2019-11-04] MEDS: ATORVASTATIN 10 MG TABLET PO SCH (21:24)
[2019-11-04] MEDS: cefTRIAXone 1,000 MG in SYRINGE 1 EACH IV SCH (21:25)
[2019-11-05] MEDS: SODIUM CHLORIDE 0.9% 1,000 ML IV SCH (04:26)
[2019-11-05] MEDS: INSULIN GLARGINE 100 UNIT/ML SUBCUT SCH (08:55)
[2019-11-05] MEDS: INSULIN LISPRO 100 UNIT/ML SUBCUT SCH ×3 (08:55→16:28)
[2019-11-05] MEDS: DOCUSATE SODIUM 100 MG CAPSULE PO SCH ×2 (08:56→20:12)
[2019-11-05] MEDS: ASPIRIN EC 81 MG TABLET PO SCH (08:57)
[2019-11-05] MEDS: GABAPENTIN 300 MG CAPSULE PO SCH ×2 (08:57→20:12)
[2019-11-05] MEDS: glipiZIDE 10 MG TABLET PO SCH ×2 (08:57→16:29)
[2019-11-05] MEDS: PANTOPRAZOLE 40 MG TABLET PO SCH (08:57)
[2019-11-05] MEDS: carvediloL 12.5 MG TABLET PO SCH ×2 (08:57→16:29)
[2019-11-05] MEDS: allopurinoL 300 MG TABLET PO SCH (08:57)
[2019-11-05] MEDS: ISOSORBIDE MONONITRATE 60 MG TABLET PO SCH (08:57)
[2019-11-05] MEDS: sitaGLIPtin 25 MG TABLET PO SCH (08:57)
[2019-11-05] MEDS: amLODIPine 5 MG TABLET PO SCH (08:58)
[2019-11-05] MEDS: FUROSEMIDE 80 MG TABLET PO SCH ×2 (08:58→16:29)
[2019-11-05 12:54] LABS: Basophils % 0.2 % (0.0-0.8); Eosinophils # 1.3 10*3/uL (0.0-0.87); Eosinophils % 10.6 % (0.00-10.9); Hematocrit 27.1 VOL% (42.0-52.0); Hemoglobin 8.5 GM/DL (14.0-18.0); Immature Granulocytes % 0.5 %; Immature Granulocytes Absolute 0.06 #; Lymphocytes % 16.6 % (21.2-54.2); Mean Corpuscular HGB Conc 31.4 GM/DL (32-36); Mean Corpuscular Volume 92.2 FL (87-102); Mean Platelet Volume 9.8 FL (9.6-12.0); Monocytes % 6.9 % (1.7-12.7); Neutrophils % 65.2 % (38.7-73.9); Platelet Count 325 T/CUMM (130-400); Red Blood Count 2.94 MC/CUMM (3.8-5.5); Red Cell Distribution Width 13.5 % (9.3-17.3); White Blood Count 12.2 T/CUMM (4-12)
[2019-11-05 13:01] LABS: Calcium 8.1 MG/DL (8.5-10.1)
[2019-11-05 13:17] LABS: Troponin I 0.506 NG/ML (0.00-0.045)
[2019-11-05] MEDS ORDERED: ATORVASTATIN 40 MG TABLET PO SCH (13:26)
[2019-11-05] MEDS: ENOXAPARIN 150 MG/ML SYRINGE SUBCUT SCH (16:29)
[2019-11-05] MEDS: TAMSULOSIN 0.4 MG CAPSULE PO SCH (20:11)
[2019-11-05] MEDS: cefTRIAXone 1,000 MG in SYRINGE 1 EACH IV SCH (20:13)
[2019-11-06 04:46] LABS: Basophils % 0.3 % (0.0-0.8); Eosinophils # 1.4 10*3/uL (0.0-0.87); Eosinophils % 11.5 % (0.00-10.9); Hematocrit 27.4 VOL% (42.0-52.0); Hemoglobin 8.5 GM/DL (14.0-18.0); Immature Granulocytes % 0.4 %; Immature Granulocytes Absolute 0.05 #; Lymphocytes # 1.7 10*3/uL (1.4-4.0); Lymphocytes % 14.5 % (21.2-54.2); Mean Platelet Volume 9.5 FL (9.6-12.0); Monocytes % 6.5 % (1.7-12.7); Neutrophils % 66.8 % (38.7-73.9); Platelet Count 352 T/CUMM (130-400); Red Blood Count 3.01 MC/CUMM (3.8-5.5); Red Cell Distribution Width 13.3 % (9.3-17.3); White Blood Count 11.9 T/CUMM (4-12)
[2019-11-06 05:08] LABS: Band Neutrophils 1 % (0-10); Eosinophils 13 % (0-10); Hypochromasia 1+; Lymphocytes 17 % (20-55); Segmented Neutrophils 62 % (50-85); Total Cells Counted 100
[2019-11-06 05:09] LABS: Microcytosis 1+; Ovalocytes Slight
[2019-11-06 05:20] LABS: Calcium 8.5 MG/DL (8.5-10.1); Osmolality,Calculated 288.8 MOS/KG (273-304)
[2019-11-06] MEDS: sitaGLIPtin 25 MG TABLET PO SCH (08:23)
[2019-11-06] MEDS: ASPIRIN EC 81 MG TABLET PO SCH (08:23)
[2019-11-06] MEDS: ISOSORBIDE MONONITRATE 60 MG TABLET PO SCH (08:23)
[2019-11-06] MEDS: FUROSEMIDE 80 MG TABLET PO SCH (08:23)
[2019-11-06] MEDS: DOCUSATE SODIUM 100 MG CAPSULE PO SCH (08:23)
[2019-11-06] MEDS: carvediloL 12.5 MG TABLET PO SCH (08:23)
[2019-11-06] MEDS: glipiZIDE 10 MG TABLET PO SCH (08:23)
[2019-11-06] MEDS: allopurinoL 300 MG TABLET PO SCH (08:23)
[2019-11-06] MEDS: GABAPENTIN 300 MG CAPSULE PO SCH (08:24)
[2019-11-06] MEDS: PANTOPRAZOLE 40 MG TABLET PO SCH (08:24)
[2019-11-06] MEDS: INSULIN LISPRO 100 UNIT/ML SUBCUT SCH ×2 (08:24→13:00)
[2019-11-06] MEDS: INSULIN GLARGINE 100 UNIT/ML SUBCUT SCH (08:24)
[2019-11-06] MEDS ORDERED: amLODIPine 5 MG TABLET PO SCH (09:00)
[2019-11-06 11:58] VITALS: BP 145/77
[2019-11-06] MEDS ORDERED: carvediloL 12.5 MG TABLET PO SCH ×2 (21:00)
== END 2019-11-06 13:50 | disposition home health service (06) | DRG 281 ==
LOC: N.ED 11:42 → N.EDINP 14:19 → N.TELES 15:06
PROVIDERS: ADMIT Family Medicine; ATTEND Family Medicine

== ENCOUNTER 2020-02-17 13:34 | Observation (INO) ==
[2020-02-17 16:00] LABS: Hematocrit 25.6 VOL% (42.0-52.0); Hemoglobin 7.5 GM/DL (14.0-18.0)
[2020-02-17] MEDS ORDERED: SODIUM CHLORIDE 0.9% 1,000 ML IV PRN (16:13)
[2020-02-17] MEDS ORDERED: ONDANSETRON 4 MG/2 ML VIAL IV PRN (16:44)
[2020-02-17] MEDS ORDERED: GLUCAGON 1 MG VIAL IM PRN (16:44)
[2020-02-17] MEDS ORDERED: DEXTROSE 50% 25 GM/50 ML VIAL IV PRN (16:44)
[2020-02-17] MEDS ORDERED: ACETAMINOPHEN 325 MG TABLET PO PRN (16:44)
[2020-02-17] MEDS: carvediloL 12.5 MG TABLET PO SCH ×2 (18:25→18:31)
[2020-02-17] MEDS ORDERED: TAMSULOSIN 0.4 MG CAPSULE PO SCH (21:00)
[2020-02-17] MEDS ORDERED: ATORVASTATIN 10 MG TABLET PO SCH (21:00)
[2020-02-17] MEDS ORDERED: FUROSEMIDE 20 MG/2 ML VIAL IV ONE (21:00)
[2020-02-17] MEDS: DOCUSATE SODIUM 100 MG CAPSULE PO SCH (21:04)
[2020-02-17] MEDS: APIXABAN 2.5 MG TABLET PO SCH (21:04)
[2020-02-17] MEDS: INSULIN LISPRO 100 UNIT/ML SUBCUT SCH (21:07)
[2020-02-17] MEDS: FUROSEMIDE 80 MG TABLET PO SCH (21:07)
[2020-02-17] MEDS: GABAPENTIN 300 MG CAPSULE PO SCH (21:10)
[2020-02-17] MEDS ORDERED: hydrALAZINE 20 MG/1 ML VIAL IV PRN (21:37)
[2020-02-18 06:58] LABS: Basophils % 0.3 % (0.0-0.8); Eosinophils # 1.4 10*3/uL (0.0-0.87); Eosinophils % 12.6 % (0.00-10.9); Hematocrit 27.4 VOL% (42.0-52.0); Hemoglobin 8.2 GM/DL (14.0-18.0); Immature Granulocytes % 0.5 %; Immature Granulocytes Absolute 0.05 #; Lymphocytes # 1.6 10*3/uL (1.4-4.0); Lymphocytes % 14.6 % (21.2-54.2); Mean Corpuscular HGB Conc 29.9 GM/DL (32-36); Mean Corpuscular Volume 94.2 FL (87-102); Mean Platelet Volume 9.1 FL (9.6-12.0); Platelet Count 262 T/CUMM (130-400); Red Blood Count 2.91 MC/CUMM (3.8-5.5); Red Cell Distribution Width 15.3 % (9.3-17.3); White Blood Count 10.9 T/CUMM (4-12)
[2020-02-18 07:18] LABS: Eosinophils 26 % (0-10); Hypochromasia 1+; Lymphocytes 8 % (20-55); Ovalocytes Slight; Platelet Estimate Adequate; Segmented Neutrophils 57 % (50-85); Total Cells Counted 100
[2020-02-18 07:19] LABS: Alanine Aminotransferase < 9 U/L (16-61); Albumin 2.6 G/DL (3.4-5.0); Alkaline Phosphatase 87 U/L (45-117); Aspartate Amino Transferase 12 U/L (0-37); Blood Urea Nitrogen 51 MG/DL (7-18); Estimated Glom Filtration Rate 26 ML/MIN; Glucose 141 MG/DL (74-106); Microcytosis 1+; Osmolality,Calculated 298.1 MOS/KG (273-304); Total Protein 8.1 G/DL (6.4-8.3)
[2020-02-18] MEDS ORDERED: PANTOPRAZOLE 40 MG TABLET PO SCH (09:00)
[2020-02-18] MEDS ORDERED: ISOSORBIDE MONONITRATE 60 MG TABLET PO SCH (09:00)
[2020-02-18] MEDS ORDERED: amLODIPine 5 MG TABLET PO SCH (09:00)
[2020-02-18] MEDS ORDERED: allopurinoL 300 MG TABLET PO SCH (09:00)
[2020-02-18] MEDS ORDERED: ASPIRIN EC 81 MG TABLET PO SCH (09:00)
[2020-02-18] MEDS: GABAPENTIN 300 MG CAPSULE PO SCH (09:13)
[2020-02-18] MEDS: DOCUSATE SODIUM 100 MG CAPSULE PO SCH (09:13)
[2020-02-18] MEDS: APIXABAN 2.5 MG TABLET PO SCH (09:13)
[2020-02-18] MEDS: FUROSEMIDE 80 MG TABLET PO SCH (09:13)
[2020-02-18] MEDS: carvediloL 12.5 MG TABLET PO SCH (09:14)
[2020-02-18] MEDS: INSULIN LISPRO 100 UNIT/ML SUBCUT SCH ×2 (09:14→13:17)
[2020-02-18 11:56] VITALS: BP 160/74
== END 2020-02-18 14:12 | disposition home or self-care (01) ==
LOC: N.TELES
PROVIDERS: ADMIT Family Medicine; ATTEND Family Medicine

== ENCOUNTER 2020-10-21 07:19 | Inpatient (IN) ==
[2020-10-19 12:45] LABS: Basophils # 0.1 10*3/uL (0.0-0.2); Basophils % 0.2 % (0.0-0.8); Eosinophils % 4.4 % (0.00-10.9); Hematocrit 26.7 VOL% (42.0-52.0); Hemoglobin 8.7 GM/DL (14.0-18.0); Immature Granulocytes Absolute 0.22 #; Lymphocytes # 1.7 10*3/uL (1.4-4.0); Lymphocytes % 7.5 % (21.2-54.2); Mean Corpuscular HGB Conc 32.6 GM/DL (32-36); Mean Corpuscular Volume 90.5 FL (87-102); Monocytes % 5.8 % (1.7-12.7); Neutrophils % 81.1 % (38.7-73.9); Platelet Count 392 T/CUMM (130-400); Red Blood Count 2.95 MC/CUMM (3.8-5.5); Red Cell Distribution Width 13.3 % (9.3-17.3); White Blood Count 22.4 T/CUMM (4-12)
[2020-10-19 12:52] LABS: Calcium 8.4 MG/DL (8.5-10.1); Osmolality,Calculated 282.2 MOS/KG (273-304)
[2020-10-19 12:55] LABS: INR 1.1; PT Patient Result 11.6 SECS (9.8-11.9); Partial Thromboplastin Time 32.4 SECS (23.9-33.8)
[2020-10-19 13:11] LABS: Anisocytosis 2+; Band Neutrophils 13 % (0-10); Eosinophils 5 % (0-10); Lymphocytes 13 % (20-55); Platelet Estimate Normal; Segmented Neutrophils 61 % (50-85); Target Cells Few; Total Cells Counted 100
[2020-10-19 13:12] LABS: Macrocytosis 1+; Tear Drop Cells Few
[~2020-10-21 07:19] MED LIST: ceFAZolin 1,000 MG in SYRINGE 1 EACH IV ONE
[2020-10-21] MEDS ORDERED: FAMOTIDINE 20 MG TABLET PO ONE (07:38)
[2020-10-21 07:54] LABS: Hematocrit 27.1 VOL% (42.0-52.0); Hemoglobin 8.7 GM/DL (14.0-18.0)
[2020-10-21] MEDS ORDERED: SODIUM CHLORIDE 0.9% 250 ML IV SCH (08:30)
[2020-10-21] MEDS ORDERED: propofoL 200 MG/20 ML VIAL IV ONE (10:31)
[2020-10-21] MEDS ORDERED: LIDOCAINE 2% 5 ML VIAL ONE (10:31)
[2020-10-21] MEDS ORDERED: fentaNYL 100 MCG/2 ML VIAL ONE (10:31)
[2020-10-21] MEDS ORDERED: DEXMEDETOMIDINE 200 MCG/2 ML VIAL ONE (10:35)
[2020-10-21] MEDS ORDERED: LIDOCAINE 1% 20 ML VIAL ONE (10:41)
[2020-10-21] MEDS ORDERED: MIDAZOLAM 2 MG/2 ML VIAL ONE (11:05)
[2020-10-21] MEDS ORDERED: GLUCAGON 1 MG VIAL IM PRN (11:38)
[2020-10-21] MEDS ORDERED: ONDANSETRON 4 MG/2 ML VIAL IV PRN ×2 (11:38→12:00)
[2020-10-21] MEDS ORDERED: DEXTROSE 50% 25 GM/50 ML VIAL IV PRN (11:38)
[2020-10-21] MEDS ORDERED: HYDROmorphone 2 MG/1 ML VIAL IV PRN (12:00)
[2020-10-21] MEDS: glipiZIDE 10 MG TABLET PO SCH (17:13)
[2020-10-21] MEDS: metroNIDAZOLE INJ 500 MG in PREMIX 1 EACH IV SCH (17:13)
[2020-10-21] MEDS: ATORVASTATIN 40 MG TABLET PO SCH (20:52)
[2020-10-21] MEDS: TAMSULOSIN 0.4 MG CAPSULE PO SCH (20:52)
[2020-10-21] MEDS: GABAPENTIN 300 MG CAPSULE PO SCH (20:52)
[2020-10-21] MEDS: hydrALAZINE 25 MG TABLET PO SCH (20:52)
[2020-10-22] MEDS: metroNIDAZOLE INJ 500 MG in PREMIX 1 EACH IV SCH (01:39)
[2020-10-22] MEDS: ACETAMINOPHEN 325 MG TABLET PO PRN (01:40)
[2020-10-22] MEDS: ENOXAPARIN 40 MG/0.4 ML SYRINGE SUBCUT SCH (05:15)
[2020-10-22] MEDS ORDERED: LEVOFLOXACIN INJ 500 MG in PREMIX 1 EACH IV SCH (05:39)
[2020-10-22 05:50] LABS: Basophils # 0.1 10*3/uL (0.0-0.2); Basophils % 0.2 % (0.0-0.8); Eosinophils # 0.5 10*3/uL (0.0-0.87); Eosinophils % 2.5 % (0.00-10.9); Hematocrit 26.5 VOL% (42.0-52.0); Hemoglobin 8.5 GM/DL (14.0-18.0); Immature Granulocytes % 1.6 %; Immature Granulocytes Absolute 0.33 #; Lymphocytes # 1.9 10*3/uL (1.4-4.0); Lymphocytes % 8.9 % (21.2-54.2); Mean Corpuscular HGB Conc 32.1 GM/DL (32-36); Mean Corpuscular Volume 91.4 FL (87-102); Mean Platelet Volume 8.9 FL (9.6-12.0); Monocytes % 4.9 % (1.7-12.7); Neutrophils % 81.9 % (38.7-73.9); Platelet Count 390 T/CUMM (130-400); Red Cell Distribution Width 13.2 % (9.3-17.3); White Blood Count 21.2 T/CUMM (4-12)
[2020-10-22 06:08] LABS: Calcium 8.4 MG/DL (8.5-10.1); Osmolality,Calculated 280.5 MOS/KG (273-304)
[2020-10-22 08:00] LABS: Band Neutrophils 6 % (0-10); Eosinophils 3 % (0-10); Lymphocytes 16 % (20-55); Myelocytes 1 %; Segmented Neutrophils 65 % (50-85); Total Cells Counted 100
[2020-10-22 08:01] LABS: Anisocytosis 1+; Hypochromasia Slight; Macrocytosis 1+; Platelet Estimate Normal
[2020-10-22] MEDS: allopurinoL 300 MG TABLET PO SCH (09:00)
[2020-10-22] MEDS: ASPIRIN EC 81 MG TABLET PO SCH (09:01)
[2020-10-22] MEDS: glipiZIDE 10 MG TABLET PO SCH ×2 (09:01→17:10)
[2020-10-22] MEDS: hydrALAZINE 25 MG TABLET PO SCH (09:02)
[2020-10-22] MEDS: amLODIPine 5 MG TABLET PO SCH (09:02)
[2020-10-22] MEDS ORDERED: EPOETIN ALFA-EPBX 10,000 UNIT/ML VIAL IV PRN (11:07)
[2020-10-22] MEDS ORDERED: GLUCAGON 1 MG VIAL IM PRN (15:34)
[2020-10-22] MEDS ORDERED: DEXTROSE 50% 25 GM/50 ML VIAL IV PRN (15:34)
[2020-10-22] MEDS ORDERED: ALBUTEROL/IPRATROPIUM 3 ML NEB RESP TX PRN (15:35)
[2020-10-22] MEDS: INSULIN REGULAR 100 UNIT/ML SUBCUT SCH ×2 (17:10→20:50)
[2020-10-22] MEDS: GABAPENTIN 300 MG CAPSULE PO SCH (20:49)
[2020-10-22] MEDS: TAMSULOSIN 0.4 MG CAPSULE PO SCH (20:49)
[2020-10-22] MEDS: ATORVASTATIN 40 MG TABLET PO SCH (20:50)
[2020-10-23] MEDS: ENOXAPARIN 40 MG/0.4 ML SYRINGE SUBCUT SCH (05:09)
[2020-10-23 05:59] LABS: Basophils % 0.2 % (0.0-0.8); Eosinophils # 0.8 10*3/uL (0.0-0.87); Eosinophils % 3.9 % (0.00-10.9); Hemoglobin 8.4 GM/DL (14.0-18.0); Immature Granulocytes % 1.5 %; Immature Granulocytes Absolute 0.32 #; Lymphocytes # 1.6 10*3/uL (1.4-4.0); Lymphocytes % 7.5 % (21.2-54.2); Mean Corpuscular HGB Conc 32.3 GM/DL (32-36); Mean Corpuscular Volume 91.2 FL (87-102); Mean Platelet Volume 9.4 FL (9.6-12.0); Monocytes % 6.8 % (1.7-12.7); Neutrophils % 80.1 % (38.7-73.9); Platelet Count 371 T/CUMM (130-400); Red Blood Count 2.85 MC/CUMM (3.8-5.5); Red Cell Distribution Width 13.3 % (9.3-17.3); White Blood Count 21.4 T/CUMM (4-12)
[2020-10-23 06:26] LABS: Bilirubin,Total 1.3 MG/DL (0.2-1.0); Calcium 8.6 MG/DL (8.5-10.1); Osmolality,Calculated 275.7 MOS/KG (273-304); Total Protein 8.7 G/DL (6.4-8.3)
[2020-10-23 06:46] LABS: Band Neutrophils 2 % (0-10); Eosinophils 3 % (0-10); Hypochromasia Slight; Lymphocytes 8 % (20-55); Platelet Estimate Normal; Segmented Neutrophils 79 % (50-85); Total Cells Counted 100
[2020-10-23] MEDS: glipiZIDE 10 MG TABLET PO SCH ×2 (08:07→18:27)
[2020-10-23] MEDS: INSULIN REGULAR 100 UNIT/ML SUBCUT SCH ×4 (08:07→21:02)
[2020-10-23] MEDS: PIPERACILLIN/TAZOBACTAM 3,375 MG in SODIUM CHLORIDE 0.9% 100 ML IV SCH ×2 (08:45→21:01)
[2020-10-23] MEDS: allopurinoL 300 MG TABLET PO SCH (09:00)
[2020-10-23] MEDS: ASPIRIN EC 81 MG TABLET PO SCH (09:00)
[2020-10-23] MEDS: amLODIPine 5 MG TABLET PO SCH (09:00)
[2020-10-23] MEDS ORDERED: MIDAZOLAM 2 MG/2 ML VIAL ONE (09:23)
[2020-10-23] MEDS ORDERED: DEXMEDETOMIDINE 200 MCG/2 ML VIAL ONE (09:23)
[2020-10-23] MEDS ORDERED: LIDOCAINE 1% 20 ML VIAL ONE (09:38)
[2020-10-23] MEDS ORDERED: SODIUM CHLORIDE 0.9% 100 ML IV ONE (09:55)
[2020-10-23] MEDS ORDERED: propofoL 200 MG/20 ML VIAL IV ONE (09:58)
[2020-10-23] MEDS ORDERED: HYDROmorphone 2 MG/1 ML VIAL IV PRN (10:32)
[2020-10-23] MEDS ORDERED: ONDANSETRON 4 MG/2 ML VIAL IV PRN (10:32)
[2020-10-23] MEDS: MORPHINE 4 MG/1 ML VIAL IV PRN (11:58)
[2020-10-23] MEDS: ATORVASTATIN 40 MG TABLET PO SCH (21:03)
[2020-10-23] MEDS: GABAPENTIN 300 MG CAPSULE PO SCH (21:03)
[2020-10-23] MEDS: TAMSULOSIN 0.4 MG CAPSULE PO SCH (21:03)
[2020-10-24] MEDS: ENOXAPARIN 40 MG/0.4 ML SYRINGE SUBCUT SCH (05:29)
[2020-10-24 05:41] LABS: Basophils # 0.1 10*3/uL (0.0-0.2); Basophils % 0.3 % (0.0-0.8); Eosinophils # 0.9 10*3/uL (0.0-0.87); Eosinophils % 4.1 % (0.00-10.9); Hematocrit 24.7 VOL% (42.0-52.0); Hemoglobin 7.9 GM/DL (14.0-18.0); Immature Granulocytes % 1.4 %; Immature Granulocytes Absolute 0.33 #; Lymphocytes # 1.9 10*3/uL (1.4-4.0); Lymphocytes % 8.4 % (21.2-54.2); Mean Corpuscular Volume 91.5 FL (87-102); Mean Platelet Volume 9.4 FL (9.6-12.0); Monocytes % 6.3 % (1.7-12.7); Neutrophils % 79.5 % (38.7-73.9); Platelet Count 396 T/CUMM (130-400); Red Cell Distribution Width 13.3 % (9.3-17.3); White Blood Count 23.2 T/CUMM (4-12)
[2020-10-24 05:52] LABS: Calcium 8.4 MG/DL (8.5-10.1); Osmolality,Calculated 284.5 MOS/KG (273-304); Uric Acid 4.8 MG/DL (3.5-7.2)
[2020-10-24 07:16] LABS: Band Neutrophils 1 % (0-10); Eosinophils 3 % (0-10); Lymphocytes 10 % (20-55); Metamyelocytes 3 %; Platelet Estimate Normal; Segmented Neutrophils 80 % (50-85); Total Cells Counted 100
[2020-10-24 07:17] LABS: Hypochromasia Slight
[2020-10-24] MEDS: PIPERACILLIN/TAZOBACTAM 3,375 MG in SODIUM CHLORIDE 0.9% 100 ML IV SCH ×2 (08:22→20:34)
[2020-10-24] MEDS: INSULIN REGULAR 100 UNIT/ML SUBCUT SCH ×4 (08:22→20:49)
[2020-10-24] MEDS: amLODIPine 5 MG TABLET PO SCH (08:23)
[2020-10-24] MEDS: ASPIRIN EC 81 MG TABLET PO SCH (08:23)
[2020-10-24] MEDS: glipiZIDE 10 MG TABLET PO SCH ×2 (08:23→17:55)
[2020-10-24] MEDS: allopurinoL 300 MG TABLET PO SCH (08:23)
[2020-10-24] MEDS: MORPHINE 4 MG/1 ML VIAL IV PRN (11:47)
[2020-10-24 13:01] LABS: Hematocrit 23.5 VOL% (42.0-52.0); Hemoglobin 7.5 GM/DL (14.0-18.0)
[2020-10-24] MEDS: TAMSULOSIN 0.4 MG CAPSULE PO SCH (20:35)
[2020-10-24] MEDS: GABAPENTIN 300 MG CAPSULE PO SCH (20:35)
[2020-10-24] MEDS: ATORVASTATIN 40 MG TABLET PO SCH (20:36)
[2020-10-25 06:25] LABS: Basophils # 0.1 10*3/uL (0.0-0.2); Basophils % 0.2 % (0.0-0.8); Eosinophils # 1.3 10*3/uL (0.0-0.87); Eosinophils % 5.6 % (0.00-10.9); Hematocrit 22.6 VOL% (42.0-52.0); Hemoglobin 7.4 GM/DL (14.0-18.0); Immature Granulocytes % 1.7 %; Lymphocytes # 1.9 10*3/uL (1.4-4.0); Lymphocytes % 8.1 % (21.2-54.2); Mean Corpuscular HGB Conc 32.7 GM/DL (32-36); Mean Corpuscular Volume 90.8 FL (87-102); Mean Platelet Volume 9.1 FL (9.6-12.0); Monocytes % 5.5 % (1.7-12.7); Neutrophils % 78.9 % (38.7-73.9); Platelet Count 396 T/CUMM (130-400); Red Blood Count 2.49 MC/CUMM (3.8-5.5); Red Cell Distribution Width 13.5 % (9.3-17.3); White Blood Count 22.9 T/CUMM (4-12)
[2020-10-25 06:32] LABS: Osmolality,Calculated 284.7 MOS/KG (273-304)
[2020-10-25] MEDS: ENOXAPARIN 40 MG/0.4 ML SYRINGE SUBCUT SCH (06:32)
[2020-10-25 07:46] LABS: Anisocytosis 1+; Platelet Estimate Normal
[2020-10-25 07:47] LABS: Macrocytosis 1+
[2020-10-25] MEDS: ASPIRIN EC 81 MG TABLET PO SCH (09:00)
[2020-10-25] MEDS: allopurinoL 300 MG TABLET PO SCH (09:00)
[2020-10-25] MEDS: glipiZIDE 10 MG TABLET PO SCH ×2 (09:00→18:16)
[2020-10-25] MEDS: amLODIPine 5 MG TABLET PO SCH (09:00)
[2020-10-25] MEDS: PIPERACILLIN/TAZOBACTAM 3,375 MG in SODIUM CHLORIDE 0.9% 100 ML IV SCH ×2 (09:00→20:13)
[2020-10-25] MEDS: MORPHINE 4 MG/1 ML VIAL IV PRN (11:45)
[2020-10-25] MEDS: SODIUM HYPOCHLORITE 0.25% IRRIG 473 ML BOTTLE TOP SCH ×2 (11:48→20:14)
[2020-10-25] MEDS: INSULIN REGULAR 100 UNIT/ML SUBCUT SCH ×3 (12:42→20:15)
[2020-10-25 14:25] LABS: Hepatitis B Surface Ag Quant 0.51 Index; Hepatitis B Surface Ag Result Negative (Negative)
[2020-10-25] MEDS: TAMSULOSIN 0.4 MG CAPSULE PO SCH (20:14)
[2020-10-25] MEDS: GABAPENTIN 300 MG CAPSULE PO SCH (20:14)
[2020-10-25] MEDS: ATORVASTATIN 40 MG TABLET PO SCH (20:14)
[2020-10-26] MEDS: ENOXAPARIN 40 MG/0.4 ML SYRINGE SUBCUT SCH (05:01)
[2020-10-26 05:32] LABS: Basophils # 0.1 10*3/uL (0.0-0.2); Basophils % 0.2 % (0.0-0.8); Eosinophils # 0.5 10*3/uL (0.0-0.87); Hematocrit 23.2 VOL% (42.0-52.0); Hemoglobin 7.5 GM/DL (14.0-18.0); Immature Granulocytes % 1.9 %; Immature Granulocytes Absolute 0.51 #; Lymphocytes # 1.6 10*3/uL (1.4-4.0); Lymphocytes % 5.9 % (21.2-54.2); Mean Corpuscular HGB Conc 32.3 GM/DL (32-36); Mean Platelet Volume 9.3 FL (9.6-12.0); Monocytes % 5.3 % (1.7-12.7); Neutrophils % 84.7 % (38.7-73.9); Platelet Count 417 T/CUMM (130-400); Red Blood Count 2.55 MC/CUMM (3.8-5.5); Red Cell Distribution Width 13.6 % (9.3-17.3); White Blood Count 26.2 T/CUMM (4-12)
[2020-10-26 07:54] LABS: Segmented Neutrophils 85 % (50-85); Total Cells Counted 100
[2020-10-26 07:55] LABS: Eosinophils 3 % (0-10); Lymphocytes 7 % (20-55); Platelet Estimate Normal
[2020-10-26 07:56] LABS: Anisocytosis 1+; Hypochromasia 2+; Macrocytosis 1+
[2020-10-26] MEDS: ASPIRIN EC 81 MG TABLET PO SCH (08:19)
[2020-10-26] MEDS: INSULIN REGULAR 100 UNIT/ML SUBCUT SCH ×4 (08:19→20:54)
[2020-10-26] MEDS: glipiZIDE 10 MG TABLET PO SCH ×2 (08:19→16:50)
[2020-10-26] MEDS: allopurinoL 300 MG TABLET PO SCH (08:20)
[2020-10-26] MEDS: amLODIPine 5 MG TABLET PO SCH (08:20)
[2020-10-26] MEDS: PIPERACILLIN/TAZOBACTAM 3,375 MG in SODIUM CHLORIDE 0.9% 100 ML IV SCH ×2 (08:22→20:46)
[2020-10-26 10:15] LABS: Basophils # 0.1 10*3/uL (0.0-0.2); Basophils % 0.2 % (0.0-0.8); Eosinophils # 0.5 10*3/uL (0.0-0.87); Eosinophils % 1.8 % (0.00-10.9); Hematocrit 22.2 VOL% (42.0-52.0); Hemoglobin 7.2 GM/DL (14.0-18.0); Immature Granulocytes % 1.8 %; Immature Granulocytes Absolute 0.51 #; Lymphocytes # 1.3 10*3/uL (1.4-4.0); Lymphocytes % 4.5 % (21.2-54.2); Mean Corpuscular HGB Conc 32.4 GM/DL (32-36); Mean Corpuscular Volume 89.9 FL (87-102); Mean Platelet Volume 8.6 FL (9.6-12.0); Neutrophils % 85.7 % (38.7-73.9); Platelet Count 404 T/CUMM (130-400); Red Blood Count 2.47 MC/CUMM (3.8-5.5); Red Cell Distribution Width 13.5 % (9.3-17.3); White Blood Count 29.1 T/CUMM (4-12)
[2020-10-26 10:32] LABS: Calcium 8.3 MG/DL (8.5-10.1); Osmolality,Calculated 283.4 MOS/KG (273-304)
[2020-10-26 10:35] LABS: Band Neutrophils 7 % (0-10); Eosinophils 3 % (0-10); Lymphocytes 4 % (20-55); Metamyelocytes 1 %; Platelet Estimate Normal; Segmented Neutrophils 76 % (50-85); Total Cells Counted 100
[2020-10-26 10:36] LABS: Anisocytosis 1+; Hypochromasia 1+
[2020-10-26 10:37] LABS: Macrocytosis Slight; Polychromasia Slight
[2020-10-26] MEDS ORDERED: BUPIVACAINE 0.5% 50 ML VIAL ONE (11:56)
[2020-10-26] MEDS ORDERED: LIDOCAINE 1% 20 ML VIAL ONE (11:57)
[2020-10-26] MEDS ORDERED: KETAMINE 500 MG/10 ML VIAL ONE (12:11)
[2020-10-26] MEDS: SODIUM HYPOCHLORITE 0.25% IRRIG 473 ML BOTTLE TOP SCH ×2 (12:17→20:54)
[2020-10-26] MEDS ORDERED: LIDOCAINE 2% 5 ML VIAL ONE (12:24)
[2020-10-26] MEDS ORDERED: propofoL 200 MG/20 ML VIAL IV ONE (12:24)
[2020-10-26] MEDS ORDERED: PHENYLEPHRINE 1 MG/10 ML SYRINGE IV ONE (12:24)
[2020-10-26] MEDS ORDERED: SODIUM CHLORIDE 0.9% 1,000 ML IV PRN (13:57)
[2020-10-26 14:50] LABS: Hematocrit 21.7 VOL% (42.0-52.0); Hemoglobin 7.1 GM/DL (14.0-18.0)
[2020-10-26] MEDS: MORPHINE 4 MG/1 ML VIAL IV PRN (14:57)
[2020-10-26] MEDS: GABAPENTIN 300 MG CAPSULE PO SCH (20:41)
[2020-10-26] MEDS: TAMSULOSIN 0.4 MG CAPSULE PO SCH (20:41)
[2020-10-26] MEDS: ATORVASTATIN 40 MG TABLET PO SCH (20:41)
[2020-10-27 05:49] LABS: Basophils # 0.1 10*3/uL (0.0-0.2); Basophils % 0.3 % (0.0-0.8); Eosinophils # 1.2 10*3/uL (0.0-0.87); Eosinophils % 4.3 % (0.00-10.9); Hematocrit 21.8 VOL% (42.0-52.0); Immature Granulocytes % 1.5 %; Immature Granulocytes Absolute 0.42 #; Lymphocytes # 1.8 10*3/uL (1.4-4.0); Lymphocytes % 6.6 % (21.2-54.2); Mean Corpuscular HGB Conc 32.1 GM/DL (32-36); Mean Corpuscular Volume 91.6 FL (87-102); Neutrophils % 82.3 % (38.7-73.9); Platelet Count 412 T/CUMM (130-400); Red Blood Count 2.38 MC/CUMM (3.8-5.5); Red Cell Distribution Width 13.7 % (9.3-17.3); White Blood Count 27.4 T/CUMM (4-12)
[2020-10-27] MEDS: ENOXAPARIN 40 MG/0.4 ML SYRINGE SUBCUT SCH (06:12)
[2020-10-27 06:19] LABS: Calcium 8.2 MG/DL (8.5-10.1); Osmolality,Calculated 285.5 MOS/KG (273-304)
[2020-10-27 06:35] LABS: Band Neutrophils 3 % (0-10); Eosinophils 6 % (0-10); Hypochromasia 2+; Lymphocytes 1 % (20-55); Segmented Neutrophils 88 % (50-85); Total Cells Counted 100
[2020-10-27 06:36] LABS: Macrocytosis 1+
[2020-10-27 06:37] LABS: Platelet Estimate Increased; Target Cells Slight
[2020-10-27] MEDS: INSULIN REGULAR 100 UNIT/ML SUBCUT SCH ×4 (07:44→21:43)
[2020-10-27] MEDS: glipiZIDE 10 MG TABLET PO SCH ×2 (07:44→16:45)
[2020-10-27] MEDS: PIPERACILLIN/TAZOBACTAM 3,375 MG in SODIUM CHLORIDE 0.9% 100 ML IV SCH ×2 (07:45→20:58)
[2020-10-27] MEDS: amLODIPine 5 MG TABLET PO SCH (08:03)
[2020-10-27] MEDS: ASPIRIN EC 81 MG TABLET PO SCH (08:03)
[2020-10-27] MEDS: allopurinoL 300 MG TABLET PO SCH (08:04)
[2020-10-27] MEDS: SODIUM HYPOCHLORITE 0.25% IRRIG 473 ML BOTTLE TOP SCH ×2 (10:59→21:06)
[2020-10-27] MEDS: MORPHINE 4 MG/1 ML VIAL IV PRN (19:48)
[2020-10-27] MEDS: ATORVASTATIN 40 MG TABLET PO SCH (21:03)
[2020-10-27] MEDS: GABAPENTIN 300 MG CAPSULE PO SCH (21:03)
[2020-10-27] MEDS: TAMSULOSIN 0.4 MG CAPSULE PO SCH (21:03)
[2020-10-28 05:44] LABS: Basophils # 0.1 10*3/uL (0.0-0.2); Basophils % 0.2 % (0.0-0.8); Eosinophils # 1.1 10*3/uL (0.0-0.87); Eosinophils % 3.8 % (0.00-10.9); Hematocrit 27.3 VOL% (42.0-52.0); Hemoglobin 8.9 GM/DL (14.0-18.0); Immature Granulocytes % 1.9 %; Immature Granulocytes Absolute 0.52 #; Lymphocytes # 1.8 10*3/uL (1.4-4.0); Lymphocytes % 6.4 % (21.2-54.2); Mean Corpuscular HGB Conc 32.6 GM/DL (32-36); Mean Corpuscular Volume 88.9 FL (87-102); Mean Platelet Volume 8.9 FL (9.6-12.0); Monocytes % 5.4 % (1.7-12.7); Neutrophils % 82.3 % (38.7-73.9); Platelet Count 446 T/CUMM (130-400); Red Blood Count 3.07 MC/CUMM (3.8-5.5); Red Cell Distribution Width 14.7 % (9.3-17.3); White Blood Count 27.8 T/CUMM (4-12)
[2020-10-28] MEDS: ENOXAPARIN 40 MG/0.4 ML SYRINGE SUBCUT SCH (06:16)
[2020-10-28 06:22] LABS: Band Neutrophils 1 % (0-10); Eosinophils 3 % (0-10); Lymphocytes 4 % (20-55); Platelet Estimate Increased; Segmented Neutrophils 86 % (50-85); Total Cells Counted 100
[2020-10-28 06:23] LABS: Hypochromasia Slight
[2020-10-28 06:40] LABS: Calcium 8.5 MG/DL (8.5-10.1); Osmolality,Calculated 278.5 MOS/KG (273-304)
[2020-10-28] MEDS: MORPHINE 4 MG/1 ML VIAL IV PRN ×2 (08:13→11:05)
[2020-10-28] MEDS: PIPERACILLIN/TAZOBACTAM 3,375 MG in SODIUM CHLORIDE 0.9% 100 ML IV SCH ×2 (08:13→21:37)
[2020-10-28] MEDS: INSULIN REGULAR 100 UNIT/ML SUBCUT SCH ×4 (08:14→23:12)
[2020-10-28] MEDS: glipiZIDE 10 MG TABLET PO SCH ×2 (08:17→17:56)
[2020-10-28] MEDS: allopurinoL 300 MG TABLET PO SCH (11:06)
[2020-10-28] MEDS: SODIUM HYPOCHLORITE 0.25% IRRIG 473 ML BOTTLE TOP SCH ×2 (11:06→23:13)
[2020-10-28] MEDS: ASPIRIN EC 81 MG TABLET PO SCH (11:06)
[2020-10-28] MEDS: amLODIPine 5 MG TABLET PO SCH (11:06)
[2020-10-28] MEDS: ACETAMINOPHEN 325 MG TABLET PO PRN (17:56)
[2020-10-28] MEDS: GABAPENTIN 300 MG CAPSULE PO SCH (21:38)
[2020-10-28] MEDS: ATORVASTATIN 40 MG TABLET PO SCH (21:38)
[2020-10-28] MEDS: TAMSULOSIN 0.4 MG CAPSULE PO SCH (21:38)
[2020-10-29 06:00] LABS: Basophils # 0.1 10*3/uL (0.0-0.2); Basophils % 0.3 % (0.0-0.8); Eosinophils # 0.9 10*3/uL (0.0-0.87); Eosinophils % 3.7 % (0.00-10.9); Hematocrit 26.9 VOL% (42.0-52.0); Hemoglobin 8.6 GM/DL (14.0-18.0); Immature Granulocytes % 2.7 %; Immature Granulocytes Absolute 0.66 #; Lymphocytes # 1.7 10*3/uL (1.4-4.0); Lymphocytes % 6.9 % (21.2-54.2); Mean Corpuscular Volume 89.4 FL (87-102); Mean Platelet Volume 9.2 FL (9.6-12.0); Neutrophils % 79.4 % (38.7-73.9); Platelet Count 458 T/CUMM (130-400); Red Blood Count 3.01 MC/CUMM (3.8-5.5); Red Cell Distribution Width 14.8 % (9.3-17.3)
[2020-10-29 06:33] LABS: Calcium 8.3 MG/DL (8.5-10.1); Osmolality,Calculated 278.9 MOS/KG (273-304)
[2020-10-29 06:49] LABS: Band Neutrophils 2 % (0-10); Eosinophils 2 % (0-10); Lymphocytes 5 % (20-55); Metamyelocytes 1 %; Segmented Neutrophils 84 % (50-85); Total Cells Counted 100
[2020-10-29 06:51] LABS: Hypochromasia Slight; Microcytosis 1+; Platelet Estimate Increased
[2020-10-29 06:52] LABS: Polychromasia Slight; Target Cells Few
[2020-10-29] MEDS: ENOXAPARIN 30 MG/0.3 ML SYRINGE SUBCUT SCH (07:56)
[2020-10-29] MEDS ORDERED: ceFAZolin 2,000 MG in PREMIX 1 EACH IV ONE (08:02)
[2020-10-29] MEDS: glipiZIDE 10 MG TABLET PO SCH ×2 (08:41→17:26)
[2020-10-29] MEDS: INSULIN REGULAR 100 UNIT/ML SUBCUT SCH ×4 (08:41→20:28)
[2020-10-29] MEDS ORDERED: propofoL 200 MG/20 ML VIAL IV ONE (08:54)
[2020-10-29] MEDS ORDERED: SUCCINYLCHOLINE 200 MG/10 ML VIAL ONE (08:54)
[2020-10-29] MEDS ORDERED: LIDOCAINE 2% 5 ML VIAL ONE (08:54)
[2020-10-29] MEDS ORDERED: MIDAZOLAM 2 MG/2 ML VIAL ONE (08:54)
[2020-10-29] MEDS ORDERED: fentaNYL 100 MCG/2 ML VIAL ONE (08:54)
[2020-10-29] MEDS ORDERED: ONDANSETRON 4 MG/2 ML VIAL ONE (10:17)
[2020-10-29] MEDS ORDERED: PHENYLEPHRINE 1 MG/10 ML SYRINGE IV ONE (10:22)
[2020-10-29] MEDS ORDERED: SEVOFLURANE 1 UNIT/15 MINUTE INH ONE (10:22)
[2020-10-29] MEDS ORDERED: HYDROmorphone 2 MG/1 ML VIAL IV PRN (12:05)
[2020-10-29] MEDS: ASPIRIN EC 81 MG TABLET PO SCH (14:17)
[2020-10-29] MEDS: SODIUM HYPOCHLORITE 0.25% IRRIG 473 ML BOTTLE TOP SCH ×2 (14:17→21:06)
[2020-10-29] MEDS: amLODIPine 5 MG TABLET PO SCH (14:17)
[2020-10-29] MEDS: PIPERACILLIN/TAZOBACTAM 3,375 MG in SODIUM CHLORIDE 0.9% 100 ML IV SCH ×2 (14:17→20:33)
[2020-10-29] MEDS: allopurinoL 300 MG TABLET PO SCH (14:18)
[2020-10-29] MEDS: MORPHINE 4 MG/1 ML VIAL IV PRN ×2 (16:02→20:25)
[2020-10-29] MEDS: ATORVASTATIN 40 MG TABLET PO SCH (20:30)
[2020-10-29] MEDS: GABAPENTIN 300 MG CAPSULE PO SCH (20:30)
[2020-10-29] MEDS: TAMSULOSIN 0.4 MG CAPSULE PO SCH (20:30)
[2020-10-30] MEDS: ENOXAPARIN 30 MG/0.3 ML SYRINGE SUBCUT SCH (05:35)
[2020-10-30 05:49] LABS: Basophils # 0.1 10*3/uL (0.0-0.2); Basophils % 0.3 % (0.0-0.8); Eosinophils # 1.2 10*3/uL (0.0-0.87); Eosinophils % 6.5 % (0.00-10.9); Hematocrit 27.3 VOL% (42.0-52.0); Hemoglobin 8.4 GM/DL (14.0-18.0); Immature Granulocytes % 2.4 %; Immature Granulocytes Absolute 0.43 #; Lymphocytes # 1.7 10*3/uL (1.4-4.0); Lymphocytes % 9.3 % (21.2-54.2); Mean Corpuscular HGB Conc 30.8 GM/DL (32-36); Mean Corpuscular Volume 90.4 FL (87-102); Neutrophils % 75.5 % (38.7-73.9); Platelet Count 461 T/CUMM (130-400); Red Blood Count 3.02 MC/CUMM (3.8-5.5); Red Cell Distribution Width 14.8 % (9.3-17.3); White Blood Count 17.9 T/CUMM (4-12)
[2020-10-30 06:03] LABS: Calcium 8.5 MG/DL (8.5-10.1); Osmolality,Calculated 282.4 MOS/KG (273-304)
[2020-10-30] MEDS: PIPERACILLIN/TAZOBACTAM 3,375 MG in SODIUM CHLORIDE 0.9% 100 ML IV SCH ×2 (08:38→20:46)
[2020-10-30] MEDS: INSULIN REGULAR 100 UNIT/ML SUBCUT SCH ×5 (08:38→23:13)
[2020-10-30] MEDS: glipiZIDE 10 MG TABLET PO SCH ×2 (08:39→18:10)
[2020-10-30] MEDS: ASPIRIN EC 81 MG TABLET PO SCH (08:39)
[2020-10-30] MEDS: amLODIPine 5 MG TABLET PO SCH (08:40)
[2020-10-30] MEDS: allopurinoL 300 MG TABLET PO SCH (08:40)
[2020-10-30] MEDS: SODIUM HYPOCHLORITE 0.25% IRRIG 473 ML BOTTLE TOP SCH ×2 (12:49→21:00)
[2020-10-30] MEDS ORDERED: SODIUM CHLORIDE 0.9% 1,000 ML IV SCH (16:00)
[2020-10-30] MEDS ORDERED: cefTRIAXone 1,000 MG in SYRINGE 1 EACH IV SCH (16:30)
[2020-10-30 16:58] LABS: Basophils # 0.1 10*3/uL (0.0-0.2); Basophils % 0.2 % (0.0-0.8); Eosinophils # 0.5 10*3/uL (0.0-0.87); Hemoglobin 8.4 GM/DL (14.0-18.0); Immature Granulocytes % 1.9 %; Immature Granulocytes Absolute 0.48 #; Lymphocytes # 0.9 10*3/uL (1.4-4.0); Lymphocytes % 3.6 % (21.2-54.2); Mean Corpuscular HGB Conc 31.1 GM/DL (32-36); Mean Corpuscular Volume 92.5 FL (87-102); Mean Platelet Volume 9.1 FL (9.6-12.0); Monocytes % 4.9 % (1.7-12.7); Neutrophils % 87.4 % (38.7-73.9); Platelet Count 493 T/CUMM (130-400); Red Blood Count 2.92 MC/CUMM (3.8-5.5); White Blood Count 24.9 T/CUMM (4-12)
[2020-10-30 17:09] LABS: INR 1.1; PT Patient Result 11.6 SECS (9.8-11.9); Partial Thromboplastin Time 34.4 SECS (23.9-33.8)
[2020-10-30 17:23] LABS: Anisocytosis Slight; Eosinophils 3 % (0-10); Hypochromasia Slight; Lymphocytes 8 % (20-55); Polychromasia Few; Segmented Neutrophils 86 % (50-85); Total Cells Counted 100
[2020-10-30 17:24] LABS: Platelet Estimate Adequate
[2020-10-30 17:52] LABS: Alanine Aminotransferase < 9 U/L (16-61); Albumin 1.6 G/DL (3.4-5.0); Alkaline Phosphatase 70 U/L (45-117); Aspartate Amino Transferase 25 U/L (0-37); Bilirubin,Total < 0.39 MG/DL (0.2-1.0); Blood Urea Nitrogen 57 MG/DL (7-18); Calcium 8.2 MG/DL (8.5-10.1); Estimated Glom Filtration Rate 9 ML/MIN; Glucose 275 MG/DL (74-106); Osmolality,Calculated 287.7 MOS/KG (273-304); Total Protein 8.9 G/DL (6.4-8.3)
[2020-10-30] MEDS: GABAPENTIN 300 MG CAPSULE PO SCH (20:55)
[2020-10-30] MEDS: ATORVASTATIN 40 MG TABLET PO SCH (20:55)
[2020-10-30] MEDS: TAMSULOSIN 0.4 MG CAPSULE PO SCH (20:56)
[2020-10-31] MEDS: ENOXAPARIN 30 MG/0.3 ML SYRINGE SUBCUT SCH (05:18)
[2020-10-31 06:25] LABS: Basophils # 0.1 10*3/uL (0.0-0.2); Basophils % 0.3 % (0.0-0.8); Eosinophils # 0.6 10*3/uL (0.0-0.87); Eosinophils % 2.8 % (0.00-10.9); Hematocrit 26.4 VOL% (42.0-52.0); Hemoglobin 8.3 GM/DL (14.0-18.0); Immature Granulocytes % 2.7 %; Immature Granulocytes Absolute 0.58 #; Lymphocytes # 1.5 10*3/uL (1.4-4.0); Lymphocytes % 7.1 % (21.2-54.2); Mean Corpuscular HGB Conc 31.4 GM/DL (32-36); Mean Corpuscular Volume 91.7 FL (87-102); Mean Platelet Volume 9.3 FL (9.6-12.0); Monocytes % 7.9 % (1.7-12.7); Neutrophils % 79.2 % (38.7-73.9); Platelet Count 471 T/CUMM (130-400); Red Blood Count 2.88 MC/CUMM (3.8-5.5); Red Cell Distribution Width 14.9 % (9.3-17.3); White Blood Count 21.3 T/CUMM (4-12)
[2020-10-31 06:49] LABS: Calcium 8.5 MG/DL (8.5-10.1)
[2020-10-31 06:51] LABS: Lymphocytes 6 % (20-55); Platelet Estimate Increased; Segmented Neutrophils 85 % (50-85); Total Cells Counted 100
[2020-10-31 06:52] LABS: Hypochromasia Slight
[2020-10-31] MEDS: ASPIRIN EC 81 MG TABLET PO SCH (09:30)
[2020-10-31] MEDS: INSULIN REGULAR 100 UNIT/ML SUBCUT SCH ×4 (09:30→21:30)
[2020-10-31] MEDS: amLODIPine 5 MG TABLET PO SCH (09:31)
[2020-10-31] MEDS: allopurinoL 300 MG TABLET PO SCH (09:31)
[2020-10-31] MEDS: glipiZIDE 10 MG TABLET PO SCH ×2 (09:31→17:49)
[2020-10-31] MEDS: PIPERACILLIN/TAZOBACTAM 3,375 MG in SODIUM CHLORIDE 0.9% 100 ML IV SCH ×2 (12:02→23:19)
[2020-10-31] MEDS: SODIUM HYPOCHLORITE 0.25% IRRIG 473 ML BOTTLE TOP SCH (12:03)
[2020-10-31] MEDS: GABAPENTIN 300 MG CAPSULE PO SCH (21:29)
[2020-10-31] MEDS: ATORVASTATIN 40 MG TABLET PO SCH (21:30)
[2020-10-31] MEDS: TAMSULOSIN 0.4 MG CAPSULE PO SCH (21:30)
[2020-11-01] MEDS: ENOXAPARIN 30 MG/0.3 ML SYRINGE SUBCUT SCH (06:27)
[2020-11-01 06:34] LABS: Basophils % 0.2 % (0.0-0.8); Eosinophils # 0.7 10*3/uL (0.0-0.87); Eosinophils % 3.6 % (0.00-10.9); Hematocrit 24.8 VOL% (42.0-52.0); Hemoglobin 7.8 GM/DL (14.0-18.0); Immature Granulocytes % 2.1 %; Immature Granulocytes Absolute 0.43 #; Lymphocytes # 1.2 10*3/uL (1.4-4.0); Lymphocytes % 6.1 % (21.2-54.2); Mean Corpuscular HGB Conc 31.5 GM/DL (32-36); Mean Corpuscular Volume 92.2 FL (87-102); Mean Platelet Volume 9.3 FL (9.6-12.0); Monocytes % 6.6 % (1.7-12.7); Neutrophils % 81.4 % (38.7-73.9); Platelet Count 445 T/CUMM (130-400); Red Blood Count 2.69 MC/CUMM (3.8-5.5); Red Cell Distribution Width 14.9 % (9.3-17.3); White Blood Count 20.1 T/CUMM (4-12)
[2020-11-01 06:56] LABS: Calcium 8.3 MG/DL (8.5-10.1); Osmolality,Calculated 282.2 MOS/KG (273-304)
[2020-11-01 06:57] LABS: Band Neutrophils 1 % (0-10); Eosinophils 8 % (0-10); Hypochromasia 2+; Lymphocytes 8 % (20-55); Microcytosis 1+; Platelet Estimate Adequate; Segmented Neutrophils 77 % (50-85); Total Cells Counted 100
[2020-11-01] MEDS: SODIUM HYPOCHLORITE 0.25% IRRIG 473 ML BOTTLE TOP SCH ×3 (06:59→21:02)
[2020-11-01] MEDS: INSULIN REGULAR 100 UNIT/ML SUBCUT SCH ×4 (08:07→21:01)
[2020-11-01] MEDS: glipiZIDE 10 MG TABLET PO SCH ×2 (08:48→16:36)
[2020-11-01] MEDS: amLODIPine 5 MG TABLET PO SCH (08:48)
[2020-11-01] MEDS: ASPIRIN EC 81 MG TABLET PO SCH (08:48)
[2020-11-01] MEDS: allopurinoL 300 MG TABLET PO SCH (08:49)
[2020-11-01] MEDS: TAMSULOSIN 0.4 MG CAPSULE PO SCH (21:01)
[2020-11-01] MEDS: GABAPENTIN 300 MG CAPSULE PO SCH (21:01)
[2020-11-01] MEDS: ATORVASTATIN 40 MG TABLET PO SCH (21:01)
[2020-11-02] MEDS: ENOXAPARIN 30 MG/0.3 ML SYRINGE SUBCUT SCH (05:25)
[2020-11-02 07:55] VITALS: BP 132/79
[2020-11-02] MEDS: ASPIRIN EC 81 MG TABLET PO SCH (08:55)
[2020-11-02] MEDS: allopurinoL 300 MG TABLET PO SCH (08:56)
[2020-11-02] MEDS: glipiZIDE 10 MG TABLET PO SCH (08:56)
[2020-11-02] MEDS: amLODIPine 5 MG TABLET PO SCH (08:56)
[2020-11-02] MEDS: SODIUM HYPOCHLORITE 0.25% IRRIG 473 ML BOTTLE TOP SCH (08:56)
[2020-11-02] MEDS: INSULIN REGULAR 100 UNIT/ML SUBCUT SCH (11:44)
== END 2020-11-02 14:37 | DRG 239 ==
LOC: N.OR 07:19 → N.SDSINP 07:22 → N.3E 12:30
PROVIDERS: ADMIT Surgery; ATTEND Surgery